=== PATIENT | female | born 1980 | race Caucasian/White ===

== ENCOUNTER 2021-05-30 13:42 | Emergency (ER) | payer OTHER, BC ==
[~2021-05-30] VITALS: Ht 167.6 cm; Wt 100.2 kg
[2021-05-30] MEDS ORDERED: HYDROCHLOROTHIA25 MG PO (14:10)
[2021-05-30] MEDS ORDERED: AMOX-CLAV 875-1 EACH PO (15:59)
[2021-05-30] MEDS ORDERED: MUPIROCIN1 G1 TOP (15:59)
== END 2021-05-30 16:05 | disposition home or self-care (01) ==
LOC: ER 13:42
DX: L70.9 Acne, unspecified (principal); L55.9 Sunburn, unspecified